=== PATIENT | male | born 1990 | race Two or more races ===

== ENCOUNTER 2019-03-15 16:07 | Emergency (ER) | payer SELFPAY ==
[~2019-03-15] VITALS: Ht 175.3 cm; Wt 70.3 kg
[2019-03-15 17:12] VITALS: BP 120/56
== END 2019-03-15 17:59 | disposition home or self-care (01) ==
LOC: EDBD 16:07 → ER 16:23
DX: S63.502A Unspecified sprain of left wrist, initial encounter (principal); F17.210 Nicotine dependence, cigarettes, uncomplicated; F12.10 Cannabis abuse, uncomplicated; X50.0XXA Overexertion from strenuous movement or load, initial encounter; Y93.89 Activity, other specified; Y99.8 Other external cause status; Y92.89 Other specified places as the place of occurrence of the external cause
CPT/HCPCS: 73110

== ENCOUNTER 2019-04-02 18:16 | Emergency (ER) | payer SELFPAY ==
[~2019-04-02] VITALS: Ht 172.7 cm; Wt 81.6 kg
[2019-04-02 18:24] VITALS: BP 127/77
[2019-04-02] MEDS ORDERED: IBUPROFEN 800 MG TAB PO ONE (19:45)
[2019-04-02] MEDS ORDERED: ACETAMINOPHEN 500 MG TAB PO ONE (19:45)
== END 2019-04-02 20:20 | disposition home or self-care (01) ==
LOC: EDUNIT# 18:16 → EDBD 18:16 → ER 18:16
DX: S43.402A Unspecified sprain of left shoulder joint, initial encounter (principal); M79.89 Other specified soft tissue disorders; F17.210 Nicotine dependence, cigarettes, uncomplicated; F15.10 Other stimulant abuse, uncomplicated; Y08.89XA Assault by other specified means, initial encounter; Y93.89 Activity, other specified; Y99.8 Other external cause status; Y92.89 Other specified places as the place of occurrence of the external cause
CPT/HCPCS: 73030

== ENCOUNTER 2020-08-01 11:07 | Emergency (ER) | payer MEDICAID, OTHER ==
[~2020-08-01] VITALS: Ht 167.6 cm; Wt 65.8 kg
[2020-08-01] MEDS ORDERED: ONDANSETRON HCL 4 MG/2 ML VIAL ONE (11:26)
[2020-08-01] MEDS ORDERED: ONDANSETRON HCL 4 MG/2 ML VIAL IV ONE (11:30)
[2020-08-01] MEDS ORDERED: ACETAMINOPHEN 325 MG TAB PO ONE ×2 (11:59→12:00)
[2020-08-01] MEDS ORDERED: LIDOCAINE 1% HCL (LOCAL ANESTH.) INJ 20ML MDV ID ONE (12:00)
[2020-08-01] MEDS ORDERED: cefTRIAXone 1GM/50ML D5W 50 ML IV ONE (13:45)
[2020-08-01 16:00] VITALS: BP 116/73
== END 2020-08-01 17:45 | disposition home or self-care (01) ==
LOC: ER 11:07 → EDBD 11:07 → ER 17:44
DX: S01.01XA Laceration without foreign body of scalp, initial encounter (principal); F17.210 Nicotine dependence, cigarettes, uncomplicated; F15.10 Other stimulant abuse, uncomplicated; M54.2 Cervicalgia; R51.9 Headache, unspecified; Y08.89XA Assault by other specified means, initial encounter; Y93.89 Activity, other specified; Y92.89 Other specified places as the place of occurrence of the external cause; Y99.8 Other external cause status
CPT/HCPCS: 12005; 70450; 70486; 72125; 96365; 96375; 99285; J0696; J2001; J2405